=== PATIENT | female | born 1985 | race Caucasian/White ===

== ENCOUNTER 2023-08-26 12:04 | Inpatient (IN) | payer MEDICARE ==
[~2023-08-26] VITALS: Ht 167.6 cm; Wt 77.8 kg
[~2023-08-26 12:04] MED LIST: NITR-87 PO
[2023-08-26 12:55] LABS: Basophils # (auto) 0.1 10 ^3/uL (0-0.2); Eosinophils # (auto) 0 10 ^3/uL (0-0.8); Hemoglobin 8.3 g/dL (12.2-16.2); Lymphocytes # (auto) 1.2 10 ^3/uL (0.4-5.4); Mean Corpuscular Volume 63.5 fL (80.0-100.0); Monocytes # (auto) 0.4 10 ^3/uL (0-1.3); Monocytes % (auto) 6.6 % (0.0-12.0); Nucleated Red Blood Cells % 0.1 %; White Blood Cell 6.5 10^3/uL (4.4-10.8)
[2023-08-26 12:57] LABS: Basophils % (auto) 1.4 % (0.0-2.0); Eosinophils % (auto) 0.4 % (0.0-7.0); Hematocrit 27.4 % (36.0-46.0); Lymphocytes % (auto) 18.4 % (10.0-50.0); Mean Corpuscular Hemoglobin 19.2 pg (28.0-32.0); Mean Corpuscular Hgb Conc. 30.3 g/dL (32.0-36.0); Neutrophils # (auto) 4.7 10 ^3/uL (1.6-8.6); Neutrophils % (auto) 73.2 % (37.0-80.0); Red Blood Cells 4.31 10^6/uL (4.0-5.20)
[2023-08-26 12:58] LABS: Red Cell Distribution Width 20.3 % (11.8-14.3)
[2023-08-26] MEDS: SODIUM CHLORIDE 0.9% 1,000 ML IV ONE ×2 (13:00→16:17)
[2023-08-26] MEDS: ONDANSETRON HCL 4 MG/2 ML VIAL IV ONE (13:05)
[2023-08-26 13:15] LABS: Alanine Aminotransferase 30 U/L (7-40); Alkaline Phosphatase 84 U/L (46-116); Anion Gap 7 (5-15); Aspartate Aminotransferase 27 U/L (13-40); BUN/Creatinine Ratio 14.6 (10.0-20.0); Bilirubin, Total 0.4 mg/dL (0.2-1.0); Blood Urea Nitrogen 13 mg/dL (9-23); Calcium 9.2 mg/dL (8.7-10.4); Carbon Dioxide 28 mmol/L (20-30); Chloride 106 mmol/L (98-107); Glucose 99 mg/dL (74-106); Lipase 33 U/L (12-53); Potassium 3.8 mmol/L (3.5-5.1); Sodium 141 mmol/L (136-145); Total Protein 6.8 g/dL (5.7-8.2)
[2023-08-26 14:26] LABS: Urine Bacteria FEW /hpf (None Seen); Urine Blood 1+ /uL (Negative); Urine Clarity Turbid (Clear); Urine Color Yellow (Yellow); Urine Mucus FEW (None Seen); Urine Protein, UAD 3+ (Negative); Urine Specific Gravity 1.026 (1.001-1.035); Urine Urobilinogen Normal (Negative); Urine WBC 20 /hpf (0 - 5)
[2023-08-26 14:47] LABS: Amphetamine Screen, Urine Neg (NEGATIVE); Barbiturate Scree,Urine Neg (NEGATIVE); Benzodiazephine Screen, Urine Neg (NEGATIVE); Cannabinoid Screen, Urine Pos (NEGATIVE); Cocaine Screen, Urine Neg (NEGATIVE); Opiate Scree,Urine Neg (NEGATIVE); Phencyclidine Screen, Urine Neg (NEGATIVE)
[2023-08-26] MEDS: cefTRIAXone 1GM/50ML D5W 50 ML IV ONE (16:23)
[2023-08-26 18:08] LABS: Hematocrit 24.6 % (36.0-46.0); Hemoglobin 7.5 g/dL (12.2-16.2)
[2023-08-26] MEDS: TAMSULOSIN HYDROCHLORIDE 0.4 MG CAP PO ONE (18:33)
[2023-08-26 18:35] VITALS: PULSE 74; RESP 15; O2SAT 95
[2023-08-27] VITALS (9 sets, daily range): BP systolic 145–166; BP diastolic 72–100; PULSE 66–104; RESP 16–18; TEMP 97.4–97.9; O2SAT 96–98
[2023-08-27] MEDS ORDERED: NITROGLYCERIN 0.4 MG SL TAB SL PRN (01:00)
[2023-08-27] MEDS ORDERED: DOCUSATE SOD 100 MG CAP PO PRN (01:00)
[2023-08-27] MEDS ORDERED: MORPHINE SULFATE INJ 2 MG/ml SYRG IV PRN (01:00)
[2023-08-27] MEDS: D5W/SOD CHLO 0.9% 1,000 ML IV SCH (01:57)
[2023-08-27] MEDS ORDERED: SERT-160 PO (03:38)
[2023-08-27] MEDS ORDERED: METO-289 PO (03:38)
[2023-08-27] MEDS: ONDANSETRON HCL 4 MG/2 ML VIAL IV PRN (07:32)
[2023-08-27 08:40] LABS: Eosinophils # (auto) 0.1 10 ^3/uL (0-0.8); Hemoglobin 7.8 g/dL (12.2-16.2); Nucleated Red Blood Cells % 0.1 %; White Blood Cell 5.2 10^3/uL (4.4-10.8)
[2023-08-27 08:42] LABS: Basophils # (auto) 0 10 ^3/uL (0-0.2); Basophils % (auto) 0.7 % (0.0-2.0); Hematocrit 25.5 % (36.0-46.0); Lymphocytes # (auto) 1.9 10 ^3/uL (0.4-5.4); Lymphocytes % (auto) 36.1 % (10.0-50.0); Mean Corpuscular Hemoglobin 19.4 pg (28.0-32.0); Mean Corpuscular Hgb Conc. 30.5 g/dL (32.0-36.0); Mean Corpuscular Volume 63.6 fL (80.0-100.0); Monocytes # (auto) 0.5 10 ^3/uL (0-1.3); Monocytes % (auto) 9.1 % (0.0-12.0); Neutrophils # (auto) 2.7 10 ^3/uL (1.6-8.6); Neutrophils % (auto) 52.1 % (37.0-80.0); Red Blood Cells 4.01 10^6/uL (4.0-5.20); Red Cell Distribution Width 19.7 % (11.8-14.3)
[2023-08-27 08:54] LABS: Alanine Aminotransferase 24 U/L (7-40); Alkaline Phosphatase 77 U/L (46-116); Anion Gap 4 (5-15); Aspartate Aminotransferase 23 U/L (13-40); BUN/Creatinine Ratio 11.1 (10.0-20.0); Blood Urea Nitrogen 9 mg/dL (9-23); Calcium 8.7 mg/dL (8.5-10.1); Carbon Dioxide 27 mmol/L (20-30); Chloride 109 mmol/L (98-107); Glucose 105 mg/dL (74-106); Potassium 3.3 mmol/L (3.5-5.1); Sodium 140 mmol/L (136-145)
[2023-08-27 08:55] LABS: Albumin 3.7 g/dL (3.2-4.8); Bilirubin, Total 0.3 mg/dL (0.2-1.0)
[2023-08-27] MEDS: levoFLOXacin 500MG 100 ML IV SCH (09:22)
[2023-08-27] MEDS: hydrALAZINE HCL 20 MG/ML VL IV PRN (09:59)
[2023-08-27] MEDS: METOCLOPRAMIDE HCL 5MG/ml INJ 2ml VIAL IV ONE (14:00)
[2023-08-27] MEDS: HYDROcodone-ACET 5/325MG TAB PO PRN (18:53)
[2023-08-27] MEDS: TAMSULOSIN HYDROCHLORIDE 0.4 MG CAP PO SCH (18:55)
[2023-08-27] MEDS ORDERED: POTASSIUM CHLORIDE 40 MEQ, LIDOCAINE 1% (LOCAL ANESTH.) 4 ML in SODIUM CHL 0.9% 250 ML IV ONE (21:30)
[2023-08-27] MEDS: POTASSIUM EFFERVESENT TAB 25 MEQ PO ONE (22:48)
[2023-08-27] MEDS: SERTRALINE HCL 50 MG TAB PO ONE (22:48)
[2023-08-27] MEDS: METOPROLOL SUCCINATE XL 50 MG TAB PO ONE (22:49)
[2023-08-27] MEDS: MAGNESIUM SULFATE 1GM/100ML 100 ML IV ONE (22:49)
[2023-08-28] VITALS (8 sets, daily range): BP systolic 125–155; BP diastolic 65–90; PULSE 63–82; RESP 15–20; TEMP 97.6–98.8; O2SAT 97–98
[2023-08-28] MEDS ORDERED: POTASSIUM CHLORIDE 40 MEQ, LIDOCAINE 1% (LOCAL ANESTH.) 4 ML in SODIUM CHL 0.9% 250 ML IV ONE
[2023-08-28] MEDS: POTASSIUM CHL 20 Meq TABLET PO ONE (00:31)
[2023-08-28 06:46] LABS: Eosinophils # (auto) 0.1 10 ^3/uL (0-0.8); Hematocrit 24.5 % (36.0-46.0); Hemoglobin 7.6 g/dL (12.2-16.2); Mean Corpuscular Volume 63.5 fL (80.0-100.0)
[2023-08-28 06:49] LABS: Basophils # (auto) 0.1 10 ^3/uL (0-0.2); Basophils % (auto) 1.3 % (0.0-2.0); Eosinophils % (auto) 1.1 % (0.0-7.0); Lymphocytes # (auto) 1.5 10 ^3/uL (0.4-5.4); Lymphocytes % (auto) 33.1 % (10.0-50.0); Mean Corpuscular Hemoglobin 19.7 pg (28.0-32.0); Monocytes # (auto) 0.5 10 ^3/uL (0-1.3); Monocytes % (auto) 10.4 % (0.0-12.0); Neutrophils # (auto) 2.5 10 ^3/uL (1.6-8.6); Neutrophils % (auto) 54.1 % (37.0-80.0); Nucleated Red Blood Cells % 0.1 %; Red Blood Cells 3.85 10^6/uL (4.0-5.20); Red Cell Distribution Width 19.9 % (11.8-14.3); White Blood Cell 4.6 10^3/uL (4.4-10.8)
[2023-08-28 07:16] LABS: Alanine Aminotransferase 23 U/L (7-40); Albumin 3.5 g/dL (3.2-4.8); Alkaline Phosphatase 72 U/L (46-116); Anion Gap 5 (5-15); Aspartate Aminotransferase 17 U/L (13-40); Calcium 8.7 mg/dL (8.7-10.4); Carbon Dioxide 26 mmol/L (20-30); Chloride 108 mmol/L (98-107); Glucose 105 mg/dL (74-106); Magnesium 1.9 mg/dL (1.6-2.6); Potassium 3.5 mmol/L (3.5-5.1); Sodium 139 mmol/L (136-145)
[2023-08-28 07:17] LABS: Bilirubin, Total 0.3 mg/dL (0.2-1.0); Total Protein 5.8 g/dL (5.7-8.2)
[2023-08-28 07:31] LABS: Anisocytosis Moderate; Hypochromia Marked; Platelet Estimate Adequate
[2023-08-28 08:49] LABS: BUN/Creatinine Ratio 9.3 (10.0-20.0); Blood Urea Nitrogen 7 mg/dL (9-23)
[2023-08-28] MEDS: SERTRALINE HCL 50 MG TAB PO SCH (09:12)
[2023-08-28] MEDS: METOPROLOL SUCCINATE XL 50 MG TAB PO SCH (09:25)
[2023-08-28] MEDS: METOCLOPRAMIDE HCL 10 MG TAB PO PRN (12:47)
[2023-08-28] MEDS: ACETAMINOPHEN 325 MG TAB PO PRN (23:56)
[2023-08-29] VITALS (7 sets, daily range): BP systolic 143–158; BP diastolic 77–99; PULSE 58–81; RESP 15–18; TEMP 36.7; O2SAT 94–100
[2023-08-29 06:30] LABS: Basophils # (auto) 0 10 ^3/uL (0-0.2); Eosinophils # (auto) 0.1 10 ^3/uL (0-0.8); Hemoglobin 7.9 g/dL (12.2-16.2); Mean Corpuscular Volume 63.8 fL (80.0-100.0); Monocytes # (auto) 0.4 10 ^3/uL (0-1.3); White Blood Cell 4.3 10^3/uL (4.4-10.8)
[2023-08-29 06:33] LABS: Eosinophils % (auto) 1.4 % (0.0-7.0); Hematocrit 26.2 % (36.0-46.0); Lymphocytes % (auto) 46.9 % (10.0-50.0); Mean Corpuscular Hemoglobin 19.3 pg (28.0-32.0); Mean Corpuscular Hgb Conc. 30.2 g/dL (32.0-36.0); Monocytes % (auto) 9.2 % (0.0-12.0); Neutrophils # (auto) 1.8 10 ^3/uL (1.6-8.6); Neutrophils % (auto) 41.5 % (37.0-80.0); Nucleated Red Blood Cells % 0.1 %; Red Blood Cells 4.11 10^6/uL (4.0-5.20); Red Cell Distribution Width 19.8 % (11.8-14.3)
[2023-08-29 06:59] LABS: Anion Gap 5 (5-15); Carbon Dioxide 28 mmol/L (20-30); Chloride 108 mmol/L (98-107); Potassium 3.6 mmol/L (3.5-5.1); Sodium 141 mmol/L (136-145)
[2023-08-29 07:05] LABS: Glucose 102 mg/dL (74-106)
[2023-08-29 07:06] LABS: BUN/Creatinine Ratio 6.6 (10.0-20.0); Blood Urea Nitrogen < 5 mg/dL (9-23)
[2023-08-29 07:21] LABS: Magnesium 1.5 mg/dL (1.6-2.6)
[2023-08-29 07:25] LABS: Anisocytosis Slight; Hypochromia Moderate
[2023-08-29 07:26] LABS: Platelet Estimate Adequate
[2023-08-29] MEDS ORDERED: TAMS-35 PO (15:42)
[2023-08-29] MEDS ORDERED: METR-344 PO (15:42)
[2023-08-29] MEDS ORDERED: PANT40T PO (15:42)
[2023-08-29] MEDS ORDERED: AUG875T PO (15:42)
[2023-08-29] MEDS: PANTOPRAZOLE 40 MG TAB PO SCH (18:00)
[2023-08-30 08:32] LABS: Hepatitis B Surface Antigen Negative (Negative)
[2023-08-30 08:54] LABS: Hepatitis C Antibody Negative (Negative)
== END 2023-08-29 20:12 | disposition home or self-care (01) | DRG 690 ==
LOC: ER 12:04 → OVERFLOW 08-27 01:20 → EAST 08-27 03:18
PROVIDERS: ADMIT Nurse Practitioner Family; ATTEND Nurse Practitioner Family
DX: N30.00 Acute cystitis without hematuria (principal); N20.1 Calculus of ureter; E86.0 Dehydration; F12.90 Cannabis use, unspecified, uncomplicated; I10 Essential (primary) hypertension; F32.A Depression, unspecified; E87.6 Hypokalemia; D50.9 Iron deficiency anemia, unspecified; E66.3 Overweight; E11.319 Type 2 diabetes mellitus with unspecified diabetic retinopathy without macular edema; E83.42 Hypomagnesemia; Z98.84 Bariatric surgery status; Z88.0 Allergy status to penicillin; Z79.899 Other long term (current) drug therapy; Z83.3 Family history of diabetes mellitus; Z82.49 Family history of ischemic heart disease and other diseases of the circulatory system; Z68.27 Body mass index [BMI] 27.0-27.9, adult; Z97.5 Presence of (intrauterine) contraceptive device; Z82.3 Family history of stroke
CPT/HCPCS: 36415; 74176; 80048; 80053; 80307; 81001; 82306; 82550; 82607; 82962; 83036; 83605; 83690; 83735; 84443; 84702; 85014; 85018; 85025; 86803; 86850; 86900; 86901; 87086; 87340; 93005; G0378; J1956; J2001; J2405